=== PATIENT | female | born 1960 | race Caucasian/White ===

== ENCOUNTER 2018-06-04 19:15 | Emergency (ER) | payer OTHER ==
[~2018-06-04] VITALS: Ht 157.5 cm; Wt 64.5 kg
[2018-06-04 19:30] VITALS: BP 136/70; PULSE 88; RESP 20; Ht 157.5 cm; Wt 64.5 kg
[2018-06-04] MEDS ORDERED: ACET500C5 PO (22:03)
[2018-06-04] MEDS ORDERED: AZIT250T PO (22:03)
[2018-06-04] MEDS ORDERED: D-ME473S2 PO (22:03)
--- NOTE | 2018-06-04 22:04 | ERD ---
ER Documentation Chief Complaint Chief Complaint sore throat fever cough x2 weeks HPI 57-year-old female presents with right ear pain, sore throat and productive cough over the last 2-3 weeks. She may have had fever at home but no fever triage. She denies chest pain, vomiting, abdominal pain. ROS All systems reviewed and are negative except as per history of present illness. Medications Home Meds Active Scripts Acetaminophen* (Tylophen*) 500 Mg Capsule, 1 CAP PO Q6H PRN for PAIN AND OR ELEVATED TEMP, #15 CAP Prov:TRENTON VIDAL MD 06/04/18 Dextromethorphan Hb-Promethazine Hcl* (Promethazine DM* Syrup) 473 Ml Syrup, 5 ML PO Q6 PRN for COUGH for 5 Days, ML Prov:TRENTON VIDAL MD 06/04/18 Azithromycin* (Zithromax*) 250 Mg Tablet, 250 MG PO .ZPACK DIRECTED, #6 TAB TAKE 500 MG (2 TABS) THE FIRST DAY THEN 250 MG (1 TAB) DAYS 2-5 Prov:TRENTON VIDAL MD 06/04/18 Allergies Allergies: Coded Allergies: amoxicillin (Verified Allergy, Unknown, 06/04/18) Uncoded Allergies: PCN (Allergy, Unknown, 06/04/18) PMhx/Soc Medical and Surgical Hx: pt denies Medical Hx, pt denies Surgical Hx Hx Alcohol Use: No Hx Substance Use: No Hx Tobacco Use: No Smoking Status: Never smoker FmHx Family History: No diabetes, No coronary disease, No other Physical Exam Vitals Vital Signs Date Temp Pulse Resp B/P (MAP) Pulse Ox O2 O2 Flow FiO2 Time Delivery Rate 06/04/18 99.0 88 20 136/70 96 19:30 (92) Physical Exam Const: No acute distress Head: Atraumatic Eyes: Normal Conjunctiva ENT: Normal External Ears, Nose and Mouth. As normal. Nasal congestion. Coarse cough Neck: Full range of motion. No meningismus. Resp: Clear to auscultation bilaterally coarse cough with rhonchi without rales, wheezing or retractions. Cardio: Regular rate and rhythm, no murmurs Abd: Soft, non tender, non distended. Normal bowel sounds Skin: No petechiae or rashes Back: No midline or flank tenderness Ext: No cyanosis, or edema Neur: Awake and alert Psych: Normal Mood and Affect Procedures/MDM She presents with productive cough and URI symptoms over the last 2-3 weeks. Given the duration she will be treated with Zithromax, promethazine, primary care follow-up and return precautions. There is no evidence of hypoxemia, respiratory stress, signs of pneumonia. The patient was stable with no new complaints during the ER course. Clinically, there is no current evidence to suggest meningitis, sepsis, acute abdomen, pneumonia, stroke, acute coronary syndrome, pulmonary embolism, aortic dissection or any other emergent condition appearing to require further evaluation or hospitalization. Patient counseled regarding my diagnostic impression and care plan. Prior to discharge all questions answered. Pt agrees with treatment plan and understands strict return precautions. Pt is instructed to follow up with primary care provider within 24-48 hours. Precautionary instructions provided including instructions to return to the ER if not improving or for any worsening or changing symptoms or concerns. Departure Diagnosis: Primary Impression: URI, acute Condition: Stable Patient Instructions: Bronchitis, Antiobiotic Treatment (Adult) Additional Instructions: . Cheque otro vez con patel doctor primario en el proximo carranza or regresa para mas o nueva simptomas. TRENTON VIDAL MD Jun 04, 2018 22:04
== END 2018-06-04 22:57 | disposition home or self-care (01) ==
LOC: FTE 19:15
DX: J06.9 Acute upper respiratory infection, unspecified (principal)
CPT/HCPCS: 99283

== ENCOUNTER 2019-01-16 13:09 | Emergency (ER) | payer OTHER ==
[~2019-01-16] VITALS: Ht 160 cm; Wt 62.3 kg
[~2019-01-16 13:09] MED LIST: ACET500C5 PO; AZIT250T PO; D-ME473S2 PO; GABA100C14 PO; MELO15TA30 PO; OMEP20CA16 PO
[2019-01-16 13:12] VITALS: Ht 160 cm; Wt 62.3 kg
[2019-01-16] MEDS ORDERED: SOD CHLORIDE 0.9% 1,000 ML IV STA (13:40)
[2019-01-16] MEDS ORDERED: KETOROLAC 15 MG INJ IV STA (13:40)
--- NOTE | 2019-01-16 14:00 | ERD ---
ER Documentation Chief Complaint Chief Complaint SOB, BACK PAIN, ANXIOUS, NO CP HPI Translation services were utilized during this patient's encounter Language: Iranian Source: In person 58-year-old female history of fibromyalgia who presents to the emergency room with a multitude of different complaints. For the past month patient has been experiencing the following. Headaches, blurred vision, bilateral ear pain, ear ringing, shortness of breath, eyelid pain, dry mouth, shortness of breath, body pain, abdominal pain, constipation, numbness and tingling to her entire body, generalized fatigue. There were many more complaints and signs and symptoms though these were her main expressed issues. It is unclear what triggered her visit here today. The patient is followed up with her primary care physician during this timeframe. Patient today denies any chest pain, no exertional symptoms no fevers or chills. ROS All systems reviewed and are negative except as per history of present illness. Medications Home Meds Reported Medications Omeprazole* (Omeprazole*) 20 Mg Capsule.dr, 20 MG PO DAILY, #30 CAP 01/16/19 Meloxicam* (Mobic*) 15 Mg Tablet, 15 MG PO DAILY, #30 TAB 01/16/19 Gabapentin* (Gabapentin*) 100 Mg Capsule, 100 MG PO TID, #90 CAP 01/16/19 Discontinued Scripts Acetaminophen* (Tylophen*) 500 Mg Capsule, 1 CAP PO Q6H PRN for PAIN AND OR ELEVATED TEMP, #15 CAP Prov:TRENTON VIDAL MD 06/04/18 Dextromethorphan Hb-Promethazine Hcl* (Promethazine DM* Syrup) 473 Ml Syrup, 5 ML PO Q6 PRN for COUGH for 5 Days, ML Prov:TRENTON VIDAL MD 06/04/18 Azithromycin* (Zithromax*) 250 Mg Tablet, 250 MG PO .ZPACK DIRECTED, #6 TAB TAKE 500 MG (2 TABS) THE FIRST DAY THEN 250 MG (1 TAB) DAYS 2-5 Prov:TRENTON VIDAL MD 06/04/18 Allergies Allergies: Coded Allergies: Penicillins (Unverified Allergy, Unknown, 01/16/19) amoxicillin (Verified Allergy, Unknown, 01/16/19) PMhx/Soc History of Surgery: Yes (right hip tumor(benign) removal) Anesthesia Reaction: No Hx Neurological Disorder: No Hx Respiratory Disorders: No Hx Cardiac Disorders: No Hx Psychiatric Problems: Yes (Anxiety) Hx Miscellaneous Medical Probl: No Hx Alcohol Use: No Hx Substance Use: No Hx Tobacco Use: No Smoking Status: Never smoker FmHx Family History: No diabetes Physical Exam Vitals Vital Signs Date Temp Pulse Resp B/P (MAP) Pulse Ox O2 O2 Flow FiO2 Time Delivery Rate 01/16/19 98.8 80 19 121/58 99 13:12 (79) Physical Exam General: Well developed, well nourished, no acute distress Head: Normocephalic, atraumatic. Eyes: Pupils equally reactive, EOM intact ENT: Moist mucous membranes Neck: Supple, no lymphadenopathy Respiratory: Lungs clear bilaterally, no distress Cardiovascular: RRR, no murmurs, rubs, or gallops Abdominal: Soft, non-tender, non-distended, no peritoneal signs : Deferred MSK: No edema, no unilateral swelling, 5/5 strength Neurologic: Alert and oriented, moving all extremities, normal speech, no focal weakness, no cerebellar signs Skin: No rash Psych: Anxious mood Result Diagram: 01/16/19 1359 01/16/19 1359 Results 24 hrs Laboratory Tests Test 01/16/19 13:59 White Blood Count 5.2 10^3/ul Red Blood Count 4.94 10^6/ul Hemoglobin 15.0 g/dl Hematocrit 44.3 % Mean Corpuscular Volume 89.7 fl Mean Corpuscular Hemoglobin 30.4 pg Mean Corpuscular Hemoglobin Concent 33.9 g/dl Red Cell Distribution Width 12.9 % Platelet Count 289 10^3/UL Mean Platelet Volume 9.3 fl Immature Granulocytes % 0.200 % Neutrophils % 67.0 % Lymphocytes % 22.1 % Monocytes % 9.7 % Eosinophils % 0.6 % Basophils % 0.4 % Nucleated Red Blood Cells % 0.0 /100WBC Immature Granulocytes # 0.010 10^3/ul Neutrophils # 3.5 10^3/ul Lymphocytes # 1.1 10^3/ul Monocytes # 0.5 10^3/ul Eosinophils # 0.0 10^3/ul Basophils # 0.0 10^3/ul Nucleated Red Blood Cells # 0.0 10^3/ul Sodium Level 139 mmol/L Potassium Level 3.5 mmol/L Chloride Level 102 mmol/L Carbon Dioxide Level 25 mmol/L Anion Gap 12 Blood Urea Nitrogen 11 mg/dl Creatinine 0.72 mg/dl Est Glomerular Filtrat Rate mL/min > 60 mL/min Glucose Level 124 mg/dl Calcium Level 10.6 mg/dl Current Medications Medications Dose Sig/Jeffery Start Time Status Last (Trade) Ordered Route PRN Stop Time Admin Dose Reason Admin Sodium 1,000 ml @ Q1H STAT 01/16/19 DC 01/16/19 Chloride 1,000 mls/hr IV 13:40 14:02 01/16/19 14:39 Ketorolac 15 mg ONCE STAT 01/16/19 DC 01/16/19 Tromethamine IV 13:40 14:05 (Toradol) 01/16/19 13:42 Procedures/MDM EKG, MONITORS, & DIAGNOSTIC IMAGING: EKG: I reviewed and interpreted a 12-lead EKG. Rhythm: Normal sinus rhythm ST Changes: No contiguous ST segment elevations T waves: No contiguous T wave inversions Impression: No evidence of acute cardiac ischemia Chest x-ray: I reviewed and interpreted a 1 view of the chest Mediastinum: No enlargement Cardiac silhouette: No cardiomegaly Airspace: Clear lung anderson bilaterally without evidence of pneumothorax Bones: No evidence of fracture LAB INTERPRETATION: I reviewed the laboratory testing and it shows no evidence of acute process MEDICAL DECISION MAKING: The patient has a multitude and extensive list of complaints to her visit today that are all subacute for greater than 1 month. The patient's clinical exam history and presentation are very nonspecific with all systems involved. This seems unlikely related to an acute process. Possibly an exacerbation of underlying fibromyalgia. Patient's chest pain is nonspecific and not present. Nonexertional. I do not believe it is consistent with acute coronary syndrome. Given the multitude of complaints over greater than 1 month I do not believe a troponin will be helpful. Patient will benefit from basic laboratory screening, IV fluids. The patient was informed that we are unlikely to find an acute issue at this time she needs to follow-up with the primary care physician. ER COURSE: * IV fluids and NSAID provided. * Laboratory testing is unremarkable. The patient can be safely discharged with close primary care follow-up. CONSULTATION: None DISPOSITION PLAN: The patient does not have an identifiable emergent medical condition that warrants inpatient hospitalization at this time. The patient is deemed safe for discharge with outpatient follow-up. We discussed follow up with the patient's primary care doctor within 24 to 48 hours as needed. We also discussed return to the emergency room for worsening symptoms or worsening condition. Outpatient referral: None required Discharge Medications: None required Departure Diagnosis: Primary Impression: Generalized weakness Condition: Stable CECILY MULLINS MD Jan 16, 2019 14:00
[2019-01-16 15:05] VITALS: BP 117/76; PULSE 78; RESP 18
== END 2019-01-16 15:08 | disposition home or self-care (01) ==
LOC: E/R 13:09
DX: R53.1 Weakness (principal)
CPT/HCPCS: 36415; 71045; 80048; 81003; 85025; 96374; 99285; J1885; J7030; 93005